=== PATIENT | female | born 1970 | race Two or more races ===

== ENCOUNTER 2022-04-03 06:04 | Day surgery (SDC) | payer OTHER ==
[~2022-04-03] VITALS: Ht 154.9 cm; Wt 103.4 kg
[~2022-04-03 06:04] MED LIST: HYDROXYCHLOROQ200 MG PO; PREDISONE PO
[2022-04-03] MEDS ORDERED: DOLOGESIC 500-1 EACH PO (14:07)
[2022-04-03] MEDS ORDERED: MORGIDOX100 MG PO (14:07)
== END 2022-04-03 17:35 | disposition home or self-care (01) ==
LOC: CIR.AMB 06:04
PROVIDERS: ATTEND Obstetrics & Gynecology
DX: N84.0 Polyp of corpus uteri (principal); Z20.822 Contact with and (suspected) exposure to COVID-19; Z88.6 Allergy status to analgesic agent; Z91.041 Radiographic dye allergy status; Z91.013 Allergy to seafood; Z88.0 Allergy status to penicillin